=== PATIENT | female | born 1980 | race African-American/Black ===

== ENCOUNTER 2018-08-27 13:49 | Emergency (ER) | payer OTHER ==
[2018-08-27 15:53] LABS: Hemoglobin 14.6 g/dL (12.0-16.0); Mean Corpuscular HGB CONC 32.4 g/dL (32.0-36.0); Mean Corpuscular Hemoglobin 28.8 pg (27.0-31.0); Platelet Count 209 thou/uL (130-400); RBC Distribution Width 11.9 % (11.5-14.5); Red Blood Cell (RBC) Count 5.06 mill/uL (4.20-5.40); White Blood Cell (WBC) Count 5.7 thou/uL (4.8-10.8)
[2018-08-27 15:56] LABS: Anion Gap 14 mmol/L (10-20); BHCG - Serum Negative (NEGATIVE); BUN (Urea Nitrogen) 12 mg/dL (7.0-18.7); Calc. Creatinine Clearance 0 mL/min (70-130); Calcium 10.3 mg/dL (7.8-10.44); Carbon Dioxide 27 mmol/L (22-29); Chloride 101 mmol/L (98-107); Estimated GFR-MDRD 76; Glucose 365 mg/dL (70-105); Potassium 4.3 mmol/L (3.5-5.1); Pregs Control Background? CLEAR/WHITE (CLR/WHITE); Pregs Control Bar Appear? YES (CONTROL BAR); Sodium 138 mmol/L (136-145)
[2018-08-27 16:00] LABS: Band 3 % (5-11); Eosinophils 1 % (0-10); Lymphocytes 32 % (21-51); MDiff Complete? YES; Monocytes 4 % (0-10); Neutrophil 59 % (42-75); Platelet Morphology Comment Appears Adequate; RBC Morphology Normal
[2018-08-27] MEDS ORDERED: Insulin Regular 300 UNITS/3 ML VIAL ONE (16:11)
== END 2018-08-27 16:58 | disposition short-term general hospital (02) ==
LOC: SCSER 13:49
DX: T25.022A Burn of unspecified degree of left foot, initial encounter (principal); I10 Essential (primary) hypertension; Z79.899 Other long term (current) drug therapy; Z79.82 Long term (current) use of aspirin; E11.9 Type 2 diabetes mellitus without complications; Z79.84 Long term (current) use of oral hypoglycemic drugs; X19.XXXA Contact with other heat and hot substances, initial encounter
CPT/HCPCS: 36416; 80048; 84703; 85025; 96374; J1815

== ENCOUNTER 2020-10-19 12:43 | Inpatient (IN) | payer OTHER ==
[2020-10-19] MEDS ORDERED: Fentanyl 100 MCG/2 ML VIAL ONE (14:03)
[2020-10-19] MEDS ORDERED: Vancomycin 1 GM/200 ML BAG ONE (14:03)
[2020-10-19 14:38] LABS: #Basophils 0.1 thou/uL (0.0-0.2); #Eosinphils 0.1 thou/uL (0.0-0.7); #Lymphocytes 1.7 thou/uL (1.20-3.40); #Monocytes 0.4 thou/uL (0.11-0.59); #Neutrophils 5.9 thou/uL (1.40-6.50); %Basophils 0.7 % (0.0-1.0); %Eosinophils 0.9 % (0.0-10.0); %Lymphocytes 20.8 % (21.0-51.0); %Monocytes 5.2 % (0.0-10.0); %Neutrophils 72.5 % (42.0-75.0); Hemoglobin 12.2 g/dL (12.0-16.0); Mean Corpuscular HGB CONC 32.2 g/dL (32.0-36.0); Mean Corpuscular Hemoglobin 29.6 pg (27.0-31.0); Mean Corpuscular Volume 91.8 fL (78.0-98.0); Mean Platelet Volume 9.2 fL (7.4-10.4); Platelet Count 219 thou/uL (130-400); RBC Distribution Width 13.2 % (11.5-14.5); Red Blood Cell (RBC) Count 4.11 mill/uL (4.20-5.40); White Blood Cell (WBC) Count 8.2 thou/uL (4.8-10.8)
[2020-10-19 14:55] LABS: Anion Gap 14 mmol/L (10-20); BUN (Urea Nitrogen) 14 mg/dL (7.0-18.7); Calc. Creatinine Clearance 0 mL/min (70-130); Calcium 9.3 mg/dL (7.8-10.44); Carbon Dioxide 24 mmol/L (22-29); Chloride 107 mmol/L (98-107); Potassium 3.6 mmol/L (3.5-5.1); Sodium 141 mmol/L (136-145)
[2020-10-19 15:08] LABS: Glucose 51 mg/dL (70-105)
[2020-10-19] MEDS ORDERED: Calcium Carbonate 500 MG ChewTAB PO PRN (16:48)
[2020-10-19] MEDS ORDERED: Dextrose 5% in Water 1,000 ML IV PRN (16:48)
[2020-10-19] MEDS ORDERED: Dextrose 50% Abboject 50 ML SYRINGE SLOW IVP PRN (16:48)
[2020-10-19] MEDS ORDERED: TETANUS, DIPHTHERIA TOX,ADULT (TDVAX) 0.5 ML VIAL IM ONE (16:48)
[2020-10-19] MEDS ORDERED: Ondansetron PF 4 MG/2 ML Vial IVP PRN (16:48)
[2020-10-19] MEDS ORDERED: Ondansetron ODT 4 MG TAB PO PRN (16:48)
[2020-10-19] MEDS ORDERED: HumaLOG 300 UNITS/3 ML VIAL SC PRN ×2 (16:48)
[2020-10-19] MEDS ORDERED: Enoxaparin Sodium 40 MG/0.4 ML SYRINGE SC SCH (17:00)
[2020-10-19] MEDS ORDERED: Albuterol Sulfate 2.5 mg/3 ml Neb NEB PRN (18:01)
[2020-10-19 18:38] VITALS: BMI 51.3
[2020-10-19 19:10] LABS: Glucose POC Confirmation 101 mg/dl (70-105)
[2020-10-19] MEDS: Cefepime 2 GM in Sodium Chloride 0.9% 100 ML IVPB SCH (20:17)
[2020-10-19] MEDS: cloNIDine 0.1 MG TAB PO SCH (20:19)
[2020-10-19] MEDS: Carvedilol 25 MG TAB PO SCH (20:19)
[2020-10-19] MEDS: Losartan 25 MG TAB PO SCH (20:20)
[2020-10-19] MEDS: Gabapentin 300 MG CAP PO SCH (20:20)
[2020-10-19] MEDS: metFORMIN 500 MG TAB PO SCH (20:21)
[2020-10-19] MEDS ORDERED: Lantus 1000 UNITS/10 ML VIAL SC SCH (21:00)
[2020-10-19] MEDS ORDERED: Vancomycin HCl 2.5 GM in Sodium Chloride 0.9% 500 ML IVPB SCH (22:00)
[2020-10-20] MEDS: Cefepime 2 GM in Sodium Chloride 0.9% 100 ML IVPB SCH ×2 (06:20→17:43)
[2020-10-20 08:14] LABS: #Basophils 0.1 thou/uL (0.0-0.2); #Eosinphils 0.1 thou/uL (0.0-0.7); #Lymphocytes 1.7 thou/uL (1.20-3.40); #Monocytes 0.3 thou/uL (0.11-0.59); #Neutrophils 4.4 thou/uL (1.40-6.50); %Basophils 1.3 % (0.0-1.0); %Eosinophils 0.8 % (0.0-10.0); %Lymphocytes 25.9 % (21.0-51.0); %Monocytes 4.6 % (0.0-10.0); %Neutrophils 67.4 % (42.0-75.0); Hemoglobin 12.9 g/dL (12.0-16.0); Mean Corpuscular HGB CONC 32.1 g/dL (32.0-36.0); Mean Corpuscular Hemoglobin 29.4 pg (27.0-31.0); Mean Corpuscular Volume 91.5 fL (78.0-98.0); Mean Platelet Volume 8.9 fL (7.4-10.4); Platelet Count 222 thou/uL (130-400); RBC Distribution Width 13.1 % (11.5-14.5); White Blood Cell (WBC) Count 6.6 thou/uL (4.8-10.8)
[2020-10-20 08:29] LABS: Anion Gap 14 mmol/L (10-20); BUN (Urea Nitrogen) 13 mg/dL (7.0-18.7); Calc. Creatinine Clearance 219 mL/min (70-130); Carbon Dioxide 22 mmol/L (22-29); Chloride 108 mmol/L (98-107); Potassium 3.7 mmol/L (3.5-5.1); Sodium 140 mmol/L (136-145)
[2020-10-20 08:30] LABS: Calcium 9.5 mg/dL (7.8-10.44); Glucose 104 mg/dL (70-105)
[2020-10-20] MEDS ORDERED: Lantus 1000 UNITS/10 ML VIAL SC SCH (09:00)
[2020-10-20] MEDS ORDERED: Atorvastatin Calcium 40 MG TAB PO SCH (09:00)
[2020-10-20] MEDS ORDERED: Amlodipine 10 MG TAB PO SCH (09:00)
[2020-10-20] MEDS: Enoxaparin Sodium 40 MG/0.4 ML SYRINGE SC SCH (09:05)
[2020-10-20] MEDS: cloNIDine 0.1 MG TAB PO SCH ×3 (09:06→21:30)
[2020-10-20] MEDS: Ezetimibe 10 MG TAB PO SCH (09:06)
[2020-10-20] MEDS: Aspirin 81 mg Enteric Coated Tablet PO SCH (09:06)
[2020-10-20] MEDS: Empagliflozin 25 MG TAB PO SCH (09:06)
[2020-10-20] MEDS: Gabapentin 300 MG CAP PO SCH ×3 (09:06→21:31)
[2020-10-20] MEDS: Furosemide 40 MG TAB PO SCH (09:07)
[2020-10-20] MEDS: metFORMIN 500 MG TAB PO SCH ×2 (09:07→21:31)
[2020-10-20] MEDS: Losartan 25 MG TAB PO SCH ×2 (09:07→21:31)
[2020-10-20] MEDS: Carvedilol 25 MG TAB PO SCH ×2 (09:07→21:30)
[2020-10-20] MEDS: Fluticasone Propionate Nasal Spray 16 gm Bottle NASAL SCH (09:09)
[2020-10-20] MEDS: Acetaminophen 325 MG TAB PO PRN ×2 (09:21→21:36)
[2020-10-20] MEDS: Alogliptin 25 MG TAB PO SCH (10:42)
[2020-10-20] MEDS ORDERED: Furosemide 40 MG/4 ML VIAL SLOW IVP SCH (16:00)
[2020-10-20] MEDS: Atorvastatin Calcium 40 MG TAB PO SCH (21:30)
[2020-10-20] MEDS: Amlodipine 10 MG TAB PO SCH (21:30)
[2020-10-21] MEDS: Aspirin 81 mg Enteric Coated Tablet PO SCH (08:34)
[2020-10-21] MEDS: Cephalexin 250 MG CAP PO SCH ×2 (08:34→21:17)
[2020-10-21] MEDS: Enoxaparin Sodium 40 MG/0.4 ML SYRINGE SC SCH (08:34)
[2020-10-21] MEDS: Ezetimibe 10 MG TAB PO SCH (08:34)
[2020-10-21] MEDS: Furosemide 40 MG TAB PO SCH (08:35)
[2020-10-21] MEDS: Carvedilol 25 MG TAB PO SCH ×2 (08:35→21:16)
[2020-10-21] MEDS: Losartan 25 MG TAB PO SCH (08:35)
[2020-10-21] MEDS: Gabapentin 300 MG CAP PO SCH ×3 (08:35→21:17)
[2020-10-21] MEDS: cloNIDine 0.1 MG TAB PO SCH ×3 (08:35→21:17)
[2020-10-21] MEDS: metFORMIN 500 MG TAB PO SCH ×2 (08:35→21:17)
[2020-10-21] MEDS: Acetaminophen 325 MG TAB PO PRN (08:40)
[2020-10-21] MEDS: Alogliptin 25 MG TAB PO SCH (08:41)
[2020-10-21] MEDS: Empagliflozin 25 MG TAB PO SCH (08:42)
[2020-10-21] MEDS: Fluticasone Propionate Nasal Spray 16 gm Bottle NASAL SCH (08:42)
[2020-10-21] MEDS: Clindamycin 150 MG CAP PO SCH ×2 (09:02→15:02)
[2020-10-21] MEDS ORDERED: Losartan 25 MG TAB PO SCH (11:15)
[2020-10-21] MEDS ORDERED: diphenhydrAMINE 25 MG CAP PO PRN (13:36)
[2020-10-21] MEDS: Atorvastatin Calcium 40 MG TAB PO SCH (21:16)
[2020-10-21] MEDS: Amlodipine 10 MG TAB PO SCH (21:16)
[2020-10-22] MEDS: Clindamycin 150 MG CAP PO SCH ×3 (00:06→16:17)
[2020-10-22] MEDS: Ezetimibe 10 MG TAB PO SCH (08:25)
[2020-10-22] MEDS: cloNIDine 0.1 MG TAB PO SCH ×3 (08:25→21:07)
[2020-10-22] MEDS: Cephalexin 250 MG CAP PO SCH ×2 (08:25→21:08)
[2020-10-22] MEDS: Gabapentin 300 MG CAP PO SCH ×3 (08:26→21:08)
[2020-10-22] MEDS: metFORMIN 500 MG TAB PO SCH ×2 (08:26→21:08)
[2020-10-22] MEDS: Aspirin 81 mg Enteric Coated Tablet PO SCH (08:26)
[2020-10-22] MEDS: Furosemide 40 MG TAB PO SCH (08:27)
[2020-10-22] MEDS: Carvedilol 25 MG TAB PO SCH ×2 (08:27→21:09)
[2020-10-22] MEDS: Enoxaparin Sodium 40 MG/0.4 ML SYRINGE SC SCH (08:27)
[2020-10-22] MEDS: Fluticasone Propionate Nasal Spray 16 gm Bottle NASAL SCH (08:28)
[2020-10-22] MEDS: Alogliptin 25 MG TAB PO SCH (08:34)
[2020-10-22] MEDS: Empagliflozin 25 MG TAB PO SCH (08:34)
[2020-10-22] MEDS ORDERED: Losartan 25 MG TAB PO SCH (09:00)
[2020-10-22] MEDS ORDERED: hydrALAZINE 20 MG/ML VIAL SLOW IVP PRN (17:57)
[2020-10-22] MEDS: Amlodipine 10 MG TAB PO SCH (21:08)
[2020-10-22] MEDS: Atorvastatin Calcium 40 MG TAB PO SCH (21:08)
[2020-10-23] MEDS: Clindamycin 150 MG CAP PO SCH ×2 (01:04→08:49)
[2020-10-23] MEDS: Gabapentin 300 MG CAP PO SCH ×2 (08:41→15:18)
[2020-10-23] MEDS: cloNIDine 0.1 MG TAB PO SCH ×2 (08:42→15:18)
[2020-10-23] MEDS: metFORMIN 500 MG TAB PO SCH (08:42)
[2020-10-23] MEDS: Enoxaparin Sodium 40 MG/0.4 ML SYRINGE SC SCH (08:42)
[2020-10-23] MEDS: Ezetimibe 10 MG TAB PO SCH (08:42)
[2020-10-23] MEDS: Aspirin 81 mg Enteric Coated Tablet PO SCH (08:43)
[2020-10-23] MEDS: Empagliflozin 25 MG TAB PO SCH (08:43)
[2020-10-23] MEDS: Furosemide 40 MG TAB PO SCH (08:43)
[2020-10-23] MEDS: Cephalexin 250 MG CAP PO SCH (08:43)
[2020-10-23] MEDS: Carvedilol 25 MG TAB PO SCH (08:43)
[2020-10-23] MEDS: Fluticasone Propionate Nasal Spray 16 gm Bottle NASAL SCH (08:44)
[2020-10-23] MEDS ORDERED: Sacubitril 49 MG/Valsartan 51 MG TABLET PO SCH (09:00)
[2020-10-23] MEDS: Alogliptin 25 MG TAB PO SCH (09:28)
[2020-10-23] MEDS ORDERED: Hydrochlorothiazide 25 MG TAB PO SCH (11:15)
[2020-10-23 11:34] VITALS: TEMP 98.4
[2020-10-23 15:18] VITALS: BP 181/89
[2020-10-24] MEDS ORDERED: Hydrochlorothiazide 25 MG TAB PO SCH (09:00)
== END 2020-10-23 15:12 | disposition home or self-care (01) | DRG 638 ==
LOC: ERS 12:43 → T4-A 16:09 → 2NO 10-20 17:04
PROVIDERS: ADMIT Family Medicine; ATTEND Family Medicine
DX: E11.621 Type 2 diabetes mellitus with foot ulcer (principal); L03.115 Cellulitis of right lower limb; E78.5 Hyperlipidemia, unspecified; I11.0 Hypertensive heart disease with heart failure; I50.22 Chronic systolic (congestive) heart failure; Z68.43 Body mass index [BMI] 50.0-59.9, adult; I25.10 Atherosclerotic heart disease of native coronary artery without angina pectoris; G47.33 Obstructive sleep apnea (adult) (pediatric); L97.519 Non-pressure chronic ulcer of other part of right foot with unspecified severity; E11.628 Type 2 diabetes mellitus with other skin complications; E66.01 Morbid (severe) obesity due to excess calories; I34.0 Nonrheumatic mitral (valve) insufficiency; Z88.0 Allergy status to penicillin; Z79.82 Long term (current) use of aspirin; Z79.51 Long term (current) use of inhaled steroids; Z79.899 Other long term (current) drug therapy; Z79.4 Long term (current) use of insulin; Z95.1 Presence of aortocoronary bypass graft
CPT/HCPCS: 36415; 36416; 80048; 83880; 85025; 85652; 86140; 87040; 90714; 93306; 96374; 96375; J0692; J1650; J1940; J3010; J3370; J3490; J7030; Q0163

== ENCOUNTER 2022-03-13 14:05 | Emergency (ER) | payer BC, OTHER ==
[2022-03-13] MEDS ORDERED: Ketorolac Tromethamine 30 MG/ML VIAL ONE (14:39)
[2022-03-13] MEDS ORDERED: cloNIDine 0.1 MG TAB ONE (15:11)
[2022-03-13] MEDS ORDERED: hydrOXYzine 25 MG TAB ONE (15:11)
[2022-03-13 15:43] LABS: #Eosinphils 0.1 thou/uL (0.0-0.7); #Lymphocytes 1.5 thou/uL (1.20-3.40); #Monocytes 0.3 thou/uL (0.11-0.59); #Neutrophils 4.2 thou/uL (1.40-6.50); %Eosinophils 1.4 % (0.0-10.0); %Monocytes 4.9 % (0.0-10.0); %Neutrophils 68.6 % (42.0-75.0); Hemoglobin 13.7 g/dL (12.0-16.0); Mean Corpuscular HGB CONC 32.2 g/dL (32.0-36.0); Mean Corpuscular Hemoglobin 29.4 pg (27.0-31.0); Mean Corpuscular Volume 91.3 fl (78.0-98.0); Mean Platelet Volume 9.1 fL (7.4-10.4); Platelet Count 181 10x3/uL (130-400); RBC Distribution Width 12.4 % (11.5-14.5); Red Blood Cell (RBC) Count 4.66 mill/uL (4.20-5.40); White Blood Cell (WBC) Count 6.2 10x3/uL (4.8-10.8)
[2022-03-13 16:01] LABS: ALT (SGPT) 9 U/L (8-55); AST (SGOT) 12 U/L (5-34); Albumin 3.8 g/dL (3.5-5.0); Alkaline Phosphatase 48 U/L (40-110); Anion Gap 14 mmol/L (10-20); BUN (Urea Nitrogen) 25 mg/dL (7.0-18.7); Bilirubin, Total 0.2 mg/dL (0.2-1.2); Calc. Creatinine Clearance 0 mL/min (70-130); Calcium 9.4 mg/dL (7.8-10.44); Carbon Dioxide 25 mmol/L (22-29); Chloride 104 mmol/L (98-107); Estimated GFR 87; Globulin 3.3 g/dL (2.4-3.5); Glucose 119 mg/dL (70-105); Potassium 3.5 mmol/L (3.5-5.1); Protein, Total 7.1 g/dL (6.0-8.3); Sodium 139 mmol/L (136-145)
== END 2022-03-13 17:06 | disposition home or self-care (01) ==
LOC: ERS 14:05
DX: E11.628 Type 2 diabetes mellitus with other skin complications (principal); L03.031 Cellulitis of right toe
CPT/HCPCS: 36415; 80053; 85025; 85652; 86140; 96372; J1885

== ENCOUNTER 2023-01-25 14:56 | Emergency (ER) | payer BC, OTHER ==
[2023-01-25 16:52] LABS: #Eosinphils 0.1 thou/uL (0.0-0.7); #Monocytes 0.5 thou/uL (0.11-0.59); #Neutrophils 4.6 thou/uL (1.40-6.50); %Basophils 0.4 % (0.0-1.0); %Eosinophils 1.9 % (0.0-10.0); %Monocytes 6.6 % (0.0-10.0); %Neutrophils 60.8 % (42.0-75.0); Hematocrit 41.9 % (36.0-47.0); Hemoglobin 13.2 g/dL (12.0-16.0); Mean Corpuscular HGB CONC 31.5 g/dL (32.0-36.0); Mean Corpuscular Hemoglobin 29.2 pg (27.0-31.0); Mean Corpuscular Volume 92.7 fl (78.0-98.0); Mean Platelet Volume 10.5 fL (7.4-10.4); Platelet Count 220 10x3/uL (130-400); RBC Distribution Width 13.3 % (11.5-14.5); Red Blood Cell (RBC) Count 4.52 mill/uL (4.20-5.40); White Blood Cell (WBC) Count 7.5 10x3/uL (4.8-10.8)
[2023-01-25] MEDS ORDERED: Ketorolac Tromethamine 30 MG/ML VIAL ONE (17:07)
[2023-01-25 17:13] LABS: BHCG - Serum Negative (NEGATIVE); Pregs Control Background? CLEAR/WHITE (CLR/WHITE); Pregs Control Bar Appear? YES (CONTROL BAR)
[2023-01-25 17:22] LABS: ALT (SGPT) 12 U/L (8-55); AST (SGOT) 16 U/L (5-34); Alkaline Phosphatase 54 U/L (40-110); Anion Gap 15 mmol/L (10-20); BUN (Urea Nitrogen) 18 mg/dL (7.0-18.7); Bilirubin, Total 0.2 mg/dL (0.2-1.2); Calc. Creatinine Clearance 0 mL/min (70-130); Calcium 9.9 mg/dL (7.8-10.44); Carbon Dioxide 26 mmol/L (22-29); Chloride 105 mmol/L (98-107); Estimated GFR 73; Globulin 3.3 g/dL (2.4-3.5); Glucose 95 mg/dL (70-105); Potassium 4.1 mmol/L (3.5-5.1); Protein, Total 7.3 g/dL (6.0-8.3); Sodium 142 mmol/L (136-145)
[2023-01-25 17:24] LABS: Troponin I 0.016 ng/mL (< 0.028)
[2023-01-25 18:13] LABS: SARS-CoV-2 NAA Rapid Test Not Detected (NotDetected)
== END 2023-01-25 19:42 | disposition home or self-care (01) ==
LOC: ERS 14:56
DX: R05.9 Cough, unspecified (principal); B34.9 Viral infection, unspecified; E11.9 Type 2 diabetes mellitus without complications; I10 Essential (primary) hypertension; Z20.822 Contact with and (suspected) exposure to COVID-19
CPT/HCPCS: 36415; 71045; 80053; 83880; 84484; 84703; 85025; 87081; 87430; 93005; 96374; J1885